=== PATIENT | female | born 1970 | race African-American/Black ===

== ENCOUNTER 2020-01-16 12:07 | Inpatient (IN) | payer MEDICARE, MEDICAID ==
[~2020-01-16] VITALS: Ht 162.6 cm; Wt 73.9 kg
[2020-01-16] MEDS ORDERED: ENOXAPARIN 80MG/0.8ML SYR SUBCUT ONE (14:30)
[2020-01-16 14:42] LABS: CHLORIDE 97 mEq/L (98-107)
[2020-01-16 14:43] LABS: MEAN CORPUSCULAR HEMOGLOBIN 17.3 pg (28.0-32.0); MEAN CORPUSCULAR VOLUME 58.9 fL (81.0-99.0); MEAN PLATELET VOLUME 8.2 fl (7.4-10.4); PLATELET 426 x1000/uL (130-400); RED BLOOD CELL COUNT 3.15 mill/uL (4.2-5.4); RED CELL DISTRIBUTION WIDTH 23.1 % (11.6-14.6)
[2020-01-16 15:01] LABS: HEMATOCRIT. 18.6 % (36.0-48.0); HEMOGLOBIN. 5.5 g/dL (12.0-16.0)
[2020-01-16 15:05] LABS: INR 1.2; PARTIAL THROMBOPLASTIN TIME 31.9 sec (23.4-31.0); PROTHROMBIN TIME 12.4 sec (9.6-11.0)
[2020-01-16 15:15] LABS: PLATELET ESTIMATE INCREASED
[2020-01-16] MEDS ORDERED: ONDANSETRON HCL 4MG/2ML INJ IV PRN (19:45)
[2020-01-16] MEDS ORDERED: CLONIDINE 0.1MG TABLET PO PRN (19:45)
[2020-01-16] MEDS ORDERED: ZOLPIDEM TARTRATE 5MG TABLET PO PRN (19:45)
[2020-01-16] MEDS ORDERED: ACETAMINOPHEN 325MG TABLET PO PRN (19:45)
[2020-01-16] MEDS ORDERED: MAGNESIUM/ALUMINUM HYDROXIDE/SIMETHICONE 30ML UDC PO PRN (19:45)
[2020-01-16 20:24] LABS: TOTAL IRON BINDING CAPACITY 281 ug/dL (250-450)
[2020-01-16] MEDS: SODIUM CHLORIDE 0.9% INJ 3ML FLUSH IVF SCH (22:00)
[2020-01-16] MEDS: ACETAMINOPHEN 325MG TABLET PO PRN (23:56)
[2020-01-16] MEDS: SODIUM CHLORIDE 0.9% 1,000 ML IV SCH (23:56)
[2020-01-17] VITALS: BP_SYST 115; BP_DIAS 76; BP_DIAS 79
[2020-01-17] MEDS ORDERED: MELA5TAB21 PO (01:26)
[2020-01-17] MEDS ORDERED: BENA20TA10 PO (01:26)
[2020-01-17] MEDS ORDERED: HYDR12.54 PO (01:26)
[2020-01-17] MEDS ORDERED: DIPH50CA38 PO (01:26)
[2020-01-17] MEDS ORDERED: CHOL200077 PO (01:26)
[2020-01-17] MEDS ORDERED: PHEN100C4 PO (01:26)
[2020-01-17] MEDS ORDERED: MULT-1116 PO (01:26)
[2020-01-17] MEDS ORDERED: METO-411 PO (01:26)
[2020-01-17] MEDS ORDERED: DOCU-272 PO (01:26)
[2020-01-17] MEDS: DIPHENHYDRAMINE 50MG/ML VIAL IV PRN (01:45)
[2020-01-17] MEDS: IRON SUCROSE COMPLEX 100 MG/5 ML ML IV SCH (01:45)
[2020-01-17] MEDS: PHENYTOIN SODIUM EXTENDED 100MG CAPSULE PO SCH ×2 (01:46→20:57)
[2020-01-17] MEDS: ENOXAPARIN 80MG/0.8ML SYR SUBCUT SCH ×2 (01:47→14:44)
[2020-01-17 04:00] VITALS: BP 148/82
[2020-01-17] MEDS: SODIUM CHLORIDE 0.9% INJ 3ML FLUSH IVF SCH ×3 (04:54→20:57)
[2020-01-17] MEDS: SODIUM CHLORIDE 0.9% 1,000 ML IV SCH ×2 (04:54→14:50)
[2020-01-17 06:56] LABS: HEMATOCRIT. 24.1 % (36.0-48.0); MEAN CORPUSCULAR HEMOGLOBIN 20.7 pg (28.0-32.0); MEAN CORPUSCULAR VOLUME 66.1 fL (81.0-99.0); MEAN PLATELET VOLUME 8.4 fl (7.4-10.4); PLATELET 451 x1000/uL (130-400); RED BLOOD CELL COUNT 3.65 mill/uL (4.2-5.4); RED CELL DISTRIBUTION WIDTH 31.8 % (11.6-14.6)
[2020-01-17 07:27] LABS: HEMOGLOBIN. 7.6 g/dL (12.0-16.0)
[2020-01-17 07:37] LABS: CHLORIDE 102 mEq/L (98-107)
[2020-01-17 07:49] LABS: PHOSPHORUS 2.7 mg/dL (2.5-4.9)
[2020-01-17 08:00] VITALS: BP 155/75
[2020-01-17] MEDS: DOCUSATE SODIUM 100MG CAPSULE PO SCH ×2 (08:30→17:00)
[2020-01-17] MEDS: CHOLECALCIFEROL (D3) 1000 UNIT TABLET PO SCH (08:30)
[2020-01-17] MEDS: BENAZEPRIL 10MG TABLET PO SCH ×2 (08:30→20:57)
[2020-01-17] MEDS: METOPROLOL TARTRATE 50MG TABLET PO SCH ×2 (08:31→20:57)
[2020-01-17] MEDS: MULTIVITAMINS,THER W-MINERALS TABLET PO SCH (09:00)
[2020-01-17] MEDS: LORAZEPAM 2MG/ML CPJ IV PRN ×2 (09:15→22:23)
[2020-01-17 12:00] VITALS: BP 129/62
[2020-01-17 15:39] LABS: PLATELET ESTIMATE INCREASED
[2020-01-17 16:00] VITALS: BP 128/45
[2020-01-17 20:28] VITALS: BP 125/64
[2020-01-18] VITALS (10 sets, daily range): BP systolic 107–138; BP diastolic 57–76
[2020-01-18] MEDS: SODIUM CHLORIDE 0.9% 1,000 ML IV SCH ×3 (01:51→21:17)
[2020-01-18] MEDS: DIPHENHYDRAMINE 50MG/ML VIAL IV PRN (03:59)
[2020-01-18] MEDS: ENOXAPARIN 80MG/0.8ML SYR SUBCUT SCH ×2 (04:00→15:46)
[2020-01-18] MEDS: SODIUM CHLORIDE 0.9% INJ 3ML FLUSH IVF SCH ×3 (06:18→21:13)
[2020-01-18] MEDS: IRON SUCROSE COMPLEX 100 MG/5 ML ML IV SCH (09:15)
[2020-01-18] MEDS ORDERED: MIDAZOLAM HCL 2 MG/2 ML VIAL ONE (11:58)
[2020-01-18] MEDS ORDERED: PROPOFOL 200MG/20ML VIAL IV ONE (11:58)
[2020-01-18] MEDS ORDERED: FENTANYL CITRATE/PF 50MCG/ML 2ML VIAL ONE (11:58)
[2020-01-18] MEDS ORDERED: NEOSTIGMINE METHYLSULFATE 1MG/ML 10 ML VIAL ONE (11:58)
[2020-01-18] MEDS ORDERED: ROCURONIUM BROMIDE 10MG/ML VIAL 5ML IV ONE (11:58)
[2020-01-18] MEDS ORDERED: GLYCOPYRROLATE 0.2 MG/ML 2ML VIAL ONE (11:59)
[2020-01-18] MEDS ORDERED: ALTEPLASE 2MG/VIAL ITC ONE (12:15)
[2020-01-18] MEDS ORDERED: LIDOCAINE HCL 1% 20ML VIAL (Pyxis) INJ ONE (12:51)
[2020-01-18] MEDS ORDERED: IODIXANOL 320MG/ML 100 ML BOTTLE IV ONE (12:51)
[2020-01-18] MEDS ORDERED: DEXAMETHASONE 4MG/ML 1ML VIAL ONE (13:28)
[2020-01-18] MEDS ORDERED: MEPERIDINE HCL/PF 25MG/ML CPJ IV PRN (13:30)
[2020-01-18] MEDS ORDERED: ONDANSETRON HCL 4MG/2ML INJ IV PRN (13:30)
[2020-01-18] MEDS ORDERED: LABETALOL 5MG/ML SYR 20 MG/4 ML SYRINGE IV PRN (13:30)
[2020-01-18] MEDS ORDERED: HYDROMORPHONE HCL/PF 2MG/ML CPJ IV PRN (13:30)
[2020-01-18] MEDS: DOCUSATE SODIUM 100MG CAPSULE PO SCH ×2 (16:26→17:57)
[2020-01-18] MEDS: CHOLECALCIFEROL (D3) 1000 UNIT TABLET PO SCH (16:26)
[2020-01-18] MEDS: MULTIVITAMINS,THER W-MINERALS TABLET PO SCH (16:26)
[2020-01-18] MEDS: BENAZEPRIL 10MG TABLET PO SCH ×2 (16:27→21:00)
[2020-01-18] MEDS: METOPROLOL TARTRATE 50MG TABLET PO SCH ×2 (16:27→21:00)
[2020-01-18] MEDS: ACETAMINOPHEN 325MG TABLET PO PRN (17:02)
[2020-01-18] MEDS: PHENYTOIN SODIUM EXTENDED 100MG CAPSULE PO SCH (21:11)
[2020-01-19] VITALS (9 sets, daily range): BP systolic 109–131; BP diastolic 57–78
[2020-01-19] MEDS: ENOXAPARIN 80MG/0.8ML SYR SUBCUT SCH ×2 (03:05→16:22)
[2020-01-19] MEDS: SODIUM CHLORIDE 0.9% INJ 3ML FLUSH IVF SCH ×3 (05:51→21:02)
[2020-01-19] MEDS: SODIUM CHLORIDE 0.9% 1,000 ML IV SCH ×2 (06:52→16:22)
[2020-01-19 08:31] LABS: HEMATOCRIT 27.5 % (36.0-48.0); HEMOGLOBIN 8.8 g/dL (12.0-16.0)
[2020-01-19 08:49] LABS: INR 1.1; PROTHROMBIN TIME 11.7 sec (9.6-11.0)
[2020-01-19] MEDS: CHOLECALCIFEROL (D3) 1000 UNIT TABLET PO SCH (09:00)
[2020-01-19] MEDS: MULTIVITAMINS,THER W-MINERALS TABLET PO SCH (09:00)
[2020-01-19] MEDS: BENAZEPRIL 10MG TABLET PO SCH ×2 (09:00→21:02)
[2020-01-19] MEDS: DOCUSATE SODIUM 100MG CAPSULE PO SCH ×2 (09:00→16:22)
[2020-01-19] MEDS: METOPROLOL TARTRATE 50MG TABLET PO SCH ×2 (09:00→21:02)
[2020-01-19] MEDS ORDERED: IOHEXOL-300 100 ML BOTTLE ONE (12:12)
[2020-01-19] MEDS ORDERED: LIDOCAINE HCL 1% 20ML VIAL (Pyxis) INJ ONE (12:12)
[2020-01-19] MEDS ORDERED: IODIXANOL 320MG/ML 100 ML BOTTLE IV ONE (12:12)
[2020-01-19] MEDS ORDERED: IRON SUCROSE COMPLEX 100 MG/5 ML ML IV NR (12:15)
[2020-01-19] MEDS ORDERED: SODIUM CHLORIDE 0.9% 10ML VIAL ONE (13:13)
[2020-01-19] MEDS ORDERED: PROPOFOL 200MG/20ML VIAL IV ONE (13:13)
[2020-01-19] MEDS ORDERED: GLYCOPYRROLATE 0.2 MG/ML 2ML VIAL ONE (13:13)
[2020-01-19] MEDS ORDERED: NEOSTIGMINE METHYLSULFATE 1MG/ML 10 ML VIAL ONE (13:13)
[2020-01-19] MEDS ORDERED: FENTANYL CITRATE/PF 50MCG/ML 2ML VIAL ONE (13:13)
[2020-01-19] MEDS ORDERED: ROCURONIUM BROMIDE 10MG/ML VIAL 5ML IV ONE (13:13)
[2020-01-19] MEDS ORDERED: EPHEDRINE SULFATE 50MG/ML VIAL ONE (13:13)
[2020-01-19] MEDS ORDERED: MIDAZOLAM HCL 2 MG/2 ML VIAL ONE (13:13)
[2020-01-19] MEDS ORDERED: SUCCINYLCHOLINE CHLORIDE 200MG/10ML IV ONE (13:13)
[2020-01-19] MEDS ORDERED: CEFAZOLIN SODIUM 1000MG/VIAL ONE (13:14)
[2020-01-19] MEDS ORDERED: PHENYLEPHRINE HCL 10 MG/ML 1ML (IV VIAL) IV ONE (13:14)
[2020-01-19] MEDS ORDERED: METOCLOPRAMIDE HCL 10MG/2ML VIAL ONE (13:14)
[2020-01-19] MEDS ORDERED: ONDANSETRON HCL 4MG/2ML INJ ONE (13:14)
[2020-01-19 13:35] LABS: UCG SCREEN NEGATIVE
[2020-01-19] MEDS ORDERED: SODIUM CHLORIDE 0.9% 1,000 ML IV ONE (13:40)
[2020-01-19] MEDS ORDERED: ONDANSETRON HCL 4MG/2ML INJ IV PRN (13:45)
[2020-01-19] MEDS ORDERED: HYDROMORPHONE HCL/PF 2MG/ML CPJ IV PRN (13:45)
[2020-01-19] MEDS ORDERED: MORPHINE SULFATE 2 MG/ML CPJ (NOT FOR IM USE) IV PRN (13:45)
[2020-01-19] MEDS ORDERED: HEPARIN 1000 UNITS/ML 10ML ONE (13:50)
[2020-01-19] MEDS: IRON SUCROSE COMPLEX 100 MG/5 ML ML IV SCH (16:11)
[2020-01-19] MEDS: PHENYTOIN SODIUM EXTENDED 100MG CAPSULE PO SCH (21:01)
[2020-01-20] VITALS: BP 126/74
[2020-01-20] MEDS: ACETAMINOPHEN 325MG TABLET PO PRN ×2 (02:35→17:20)
[2020-01-20] MEDS: ENOXAPARIN 80MG/0.8ML SYR SUBCUT SCH ×2 (03:24→16:00)
[2020-01-20] MEDS: SODIUM CHLORIDE 0.9% 1,000 ML IV SCH ×2 (03:24→14:12)
[2020-01-20 04:00] VITALS: BP 135/75
[2020-01-20] MEDS: SODIUM CHLORIDE 0.9% INJ 3ML FLUSH IVF SCH ×3 (05:50→21:04)
[2020-01-20 08:00] VITALS: BP 136/77
[2020-01-20] MEDS: MULTIVITAMINS,THER W-MINERALS TABLET PO SCH (09:00)
[2020-01-20] MEDS: BENAZEPRIL 10MG TABLET PO SCH ×2 (09:00→20:58)
[2020-01-20] MEDS: CHOLECALCIFEROL (D3) 1000 UNIT TABLET PO SCH (09:00)
[2020-01-20] MEDS: DOCUSATE SODIUM 100MG CAPSULE PO SCH ×2 (09:00→17:00)
[2020-01-20] MEDS: METOPROLOL TARTRATE 50MG TABLET PO SCH ×2 (09:32→20:58)
[2020-01-20 12:00] VITALS: BP 132/70
[2020-01-20 16:00] VITALS: BP 129/74
[2020-01-20 20:00] VITALS: BP 140/81
[2020-01-20] MEDS: PHENYTOIN SODIUM EXTENDED 100MG CAPSULE PO SCH (20:57)
[2020-01-21] VITALS: BP 138/76
[2020-01-21 04:00] VITALS: BP 142/73
[2020-01-21] MEDS: ENOXAPARIN 80MG/0.8ML SYR SUBCUT SCH ×2 (04:04→16:32)
[2020-01-21] MEDS: SODIUM CHLORIDE 0.9% INJ 3ML FLUSH IVF SCH ×3 (06:58→21:06)
[2020-01-21 08:00] VITALS: BP 146/73
[2020-01-21] MEDS: CHOLECALCIFEROL (D3) 1000 UNIT TABLET PO SCH (09:11)
[2020-01-21] MEDS: DOCUSATE SODIUM 100MG CAPSULE PO SCH ×2 (09:11→16:29)
[2020-01-21] MEDS: METOPROLOL TARTRATE 50MG TABLET PO SCH ×2 (09:12→21:03)
[2020-01-21] MEDS: MULTIVITAMINS,THER W-MINERALS TABLET PO SCH (09:12)
[2020-01-21] MEDS: BENAZEPRIL 10MG TABLET PO SCH ×2 (09:12→21:04)
[2020-01-21 12:00] VITALS: BP 134/85
[2020-01-21 16:00] VITALS: BP 146/72
[2020-01-21 20:52] VITALS: BP 162/85
[2020-01-21] MEDS: PHENYTOIN SODIUM EXTENDED 100MG CAPSULE PO SCH (21:03)
[2020-01-22 00:23] VITALS: BP 134/69
[2020-01-22] MEDS: ENOXAPARIN 80MG/0.8ML SYR SUBCUT SCH ×2 (04:39→16:00)
[2020-01-22 04:40] VITALS: BP 144/84
[2020-01-22] MEDS: SODIUM CHLORIDE 0.9% INJ 3ML FLUSH IVF SCH ×3 (06:13→22:52)
[2020-01-22 08:05] VITALS: BP 147/87
[2020-01-22] MEDS: METOPROLOL TARTRATE 50MG TABLET PO SCH ×2 (08:48→20:58)
[2020-01-22] MEDS: DOCUSATE SODIUM 100MG CAPSULE PO SCH ×2 (08:48→17:06)
[2020-01-22] MEDS: MULTIVITAMINS,THER W-MINERALS TABLET PO SCH (08:48)
[2020-01-22] MEDS: CHOLECALCIFEROL (D3) 1000 UNIT TABLET PO SCH (08:49)
[2020-01-22] MEDS: BENAZEPRIL 10MG TABLET PO SCH ×2 (08:49→20:59)
[2020-01-22 12:05] VITALS: BP 150/90
[2020-01-22] MEDS: FERROUS SULFATE 325MG TABLET PO SCH ×2 (13:16→17:06)
[2020-01-22 15:51] LABS: HEMOGLOBIN 9.1 g/dL (12.0-16.0); MEAN CORPUSCULAR HEMOGLOBIN 23.5 pg (28.0-32.0); MEAN CORPUSCULAR VOLUME 74.7 fL (81.0-99.0); PLATELET 504 x1000/uL (130-400); RED BLOOD CELL COUNT 3.88 mill/uL (4.2-5.4); RED CELL DISTRIBUTION WIDTH 36.2 % (11.6-14.6)
[2020-01-22 16:01] LABS: CHLORIDE 104 mEq/L (98-107)
[2020-01-22 16:12] VITALS: BP 143/76
[2020-01-22 20:03] VITALS: BP 137/86
[2020-01-22] MEDS: PHENYTOIN SODIUM EXTENDED 100MG CAPSULE PO SCH (20:58)
[2020-01-23] MEDS ORDERED: PHENYTOIN SODIUM 750 MG in SODIUM CHLORIDE 0.9% 100 ML IV NR ×2
[2020-01-23 00:26] VITALS: BP 135/73
[2020-01-23 04:00] VITALS: BP 142/87
[2020-01-23] MEDS: ENOXAPARIN 80MG/0.8ML SYR SUBCUT SCH ×2 (04:49→17:41)
[2020-01-23] MEDS: SODIUM CHLORIDE 0.9% INJ 3ML FLUSH IVF SCH ×3 (06:02→21:00)
[2020-01-23 08:18] VITALS: BP 122/78
[2020-01-23] MEDS: CHOLECALCIFEROL (D3) 1000 UNIT TABLET PO SCH (09:17)
[2020-01-23] MEDS: DOCUSATE SODIUM 100MG CAPSULE PO SCH ×2 (09:18→17:00)
[2020-01-23] MEDS: FERROUS SULFATE 325MG TABLET PO SCH ×3 (09:18→17:40)
[2020-01-23] MEDS: MULTIVITAMINS,THER W-MINERALS TABLET PO SCH (09:18)
[2020-01-23] MEDS: BENAZEPRIL 10MG TABLET PO SCH ×2 (09:18→21:00)
[2020-01-23] MEDS: METOPROLOL TARTRATE 50MG TABLET PO SCH ×2 (09:18→21:00)
[2020-01-23 12:13] VITALS: BP 125/71
[2020-01-23 16:06] VITALS: BP 119/77
[2020-01-23 20:24] VITALS: BP 140/70
[2020-01-23] MEDS: PHENYTOIN SODIUM EXTENDED 100MG CAPSULE PO SCH (21:00)
[2020-01-24] VITALS (7 sets, daily range): BP systolic 100–134; BP diastolic 50–83
[2020-01-24] MEDS: ENOXAPARIN 80MG/0.8ML SYR SUBCUT SCH ×2 (04:24→16:40)
[2020-01-24] MEDS: SODIUM CHLORIDE 0.9% INJ 3ML FLUSH IVF SCH ×3 (06:01→21:01)
[2020-01-24] MEDS: DOCUSATE SODIUM 100MG CAPSULE PO SCH ×2 (08:36→16:53)
[2020-01-24] MEDS: MULTIVITAMINS,THER W-MINERALS TABLET PO SCH (08:36)
[2020-01-24] MEDS: CHOLECALCIFEROL (D3) 1000 UNIT TABLET PO SCH (08:36)
[2020-01-24] MEDS: FERROUS SULFATE 325MG TABLET PO SCH ×3 (08:36→16:53)
[2020-01-24] MEDS: BENAZEPRIL 10MG TABLET PO SCH ×2 (08:36→21:01)
[2020-01-24] MEDS: METOPROLOL TARTRATE 50MG TABLET PO SCH ×2 (08:37→21:00)
[2020-01-24] MEDS: PHENYTOIN SODIUM EXTENDED 100MG CAPSULE PO SCH (21:00)
[2020-01-25] VITALS (8 sets, daily range): BP systolic 107–140; BP diastolic 56–74
[2020-01-25] MEDS: SODIUM CHLORIDE 0.9% INJ 3ML FLUSH IVF SCH ×2 (06:01→15:18)
[2020-01-25] MEDS: BENAZEPRIL 10MG TABLET PO SCH (09:06)
[2020-01-25] MEDS: DOCUSATE SODIUM 100MG CAPSULE PO SCH ×2 (09:06→17:16)
[2020-01-25] MEDS: CHOLECALCIFEROL (D3) 1000 UNIT TABLET PO SCH (09:07)
[2020-01-25] MEDS: METOPROLOL TARTRATE 50MG TABLET PO SCH (09:07)
[2020-01-25] MEDS: APIXABAN 5 MG TABLET PO SCH ×2 (09:07→17:16)
[2020-01-25] MEDS: MULTIVITAMINS,THER W-MINERALS TABLET PO SCH (09:07)
[2020-01-25] MEDS: FERROUS SULFATE 325MG TABLET PO SCH ×3 (09:07→17:45)
== END 2020-01-25 19:11 | DRG 300 ==
LOC: ER 12:07 → ENRESERV 17:25 → CANRESERV 17:25 → ENRESERV 20:22 → 6WST 23:35
PROVIDERS: ADMIT Internal Medicine; ATTEND Internal Medicine
PROC: 30233N1 Transfusion of Nonautologous Red Blood Cells into Peripheral Vein, Percutaneous Approach (ICD-10-PCS; 2020-01-16)
PROC: 06HQ33Z Insertion of Infusion Device into Left Saphenous Vein, Percutaneous Approach (ICD-10-PCS; 2020-01-18)
PROC: B54CZZA Ultrasonography of Left Lower Extremity Veins, Guidance (ICD-10-PCS; 2020-01-18)
PROC: 06HN33Z Insertion of Infusion Device into Left Femoral Vein, Percutaneous Approach (ICD-10-PCS; 2020-01-18)
PROC: B54CZZA Ultrasonography of Left Lower Extremity Veins, Guidance (ICD-10-PCS; 2020-01-18)
PROC: 06HM33Z Insertion of Infusion Device into Right Femoral Vein, Percutaneous Approach (ICD-10-PCS; principal; 2020-01-19)
PROC: B54BZZA Ultrasonography of Right Lower Extremity Veins, Guidance (ICD-10-PCS; 2020-01-19)
PROC: B51C1ZZ Fluoroscopy of Left Lower Extremity Veins using Low Osmolar Contrast (ICD-10-PCS; 2020-01-19)
PROC: 06HN33Z Insertion of Infusion Device into Left Femoral Vein, Percutaneous Approach (ICD-10-PCS; 2020-01-19)
PROC: B51C1ZA Fluoroscopy of Left Lower Extremity Veins using Low Osmolar Contrast, Guidance (ICD-10-PCS; 2020-01-19)
PROC: 06HG33Z Insertion of Infusion Device into Left External Iliac Vein, Percutaneous Approach (ICD-10-PCS; 2020-01-19)
PROC: B51G1ZA Fluoroscopy of Left Pelvic (Iliac) Veins using Low Osmolar Contrast, Guidance (ICD-10-PCS; 2020-01-19)
DX: I82.432 Acute embolism and thrombosis of left popliteal vein (principal); E87.1 Hypo-osmolality and hyponatremia; E44.1 Mild protein-calorie malnutrition; I82.412 Acute embolism and thrombosis of left femoral vein; D64.9 Anemia, unspecified; E61.1 Iron deficiency; G40.909 Epilepsy, unspecified, not intractable, without status epilepticus; I82.422 Acute embolism and thrombosis of left iliac vein; I10 Essential (primary) hypertension; Z79.01 Long term (current) use of anticoagulants; Z20.828 Contact with and (suspected) exposure to other viral communicable diseases
CPT/HCPCS: 36415; 71045; 75820; 80048; 80053; 80185; 81025; 82270; 83540; 83550; 83735; 83880; 84100; 84484; 85014; 85018; 85025; 85027; 85049; 85384; 86850; 86900; 86920; 93005; 93970; 99291; C1769; C1893; C1894; J0330; J0690; J1100; J1165; J1200; J1644; J1650; J2060; J2250; J2370; J2405; J2704; J2710; J2765; J2997; J3010; J3490; J7050; P9016; Q9967; U0003-CS